=== PATIENT | male | born 1990 | race Caucasian/White ===

== ENCOUNTER 2022-02-01 00:18 | Day surgery (SDC) | payer OTHER, SELFPAY ==
[2022-01-23 14:29] VITALS: BMI 26.4
[2022-02-01 12:12] VITALS: BP 107/77; PULSE 68; RESP 18; TEMP 36.5; O2SAT 100
--- NOTE | 2022-02-01 12:24 | PM.HPGS ---
History of Present Illness History of Present Illness Consent: Risks, benefits, and alternatives have been discussed and questions answered. Patient agrees to proceed with procedure. Chief complaint: occult GI bleed Narrative: Oliver Duron is a 31 year old male Who has been having blood in his stools for over a year. Denies constipation or straining. He states that it can be painful when the stool passes but usually his stools soft he will have 2 or 3 bowel movements a day on average. He denies abdominal pain or weight loss. Review of Systems Review of Systems: All systems reviewed & are unremarkable except as noted in HPI and below PMFSH Family History Family History Father Family history of lymphoma Other Depression Social History Social History Smoking status: Former smoker Tobacco type: cigarettes Alcohol intake: current Substance use type: marijuana Living arrangements: with family Meds Home Medications and Allergies Allergies Allergy/AdvReac Type Severity Reaction Status Date / Time No Known Allergies Allergy Verified 02/01/22 12:11 Vital Signs Vital Signs - 24 hr 02/01/22 12:12 Temperature 36.5 C Pulse Rate 68 Respiratory Rate 18 Blood Pressure 107/77 Pulse Oximetry 100 Oxygen Delivery Room Air Exam Const: General: alert Orientation/consciousness: patient oriented x3 Resp: Auscultation: clear to auscultation bilaterally Cardio: Rhythm: regular rhythm GI: GI Palp: Yes Soft to palpation and No Tenderness to palpation present (GI) Neuro: General: patient oriented x3 Assessment and Plan Assessment and plan (1) Blood in stool: Code(s): K92.1 - Melena Status: Acute Assessment and Plan: Colonoscopy with possible biopsy or polypectomy or cautery or injection of substances.
[2022-02-01] MEDS: LACTATED RINGERS 1,000 ML 150 ML IV CONT (12:25)
--- NOTE | 2022-02-01 12:28 | P.PNAN_ITS ---
Anes - Initial Pre Proc Eval Procedure: Operation Date: 02/01/22 13:30 Proposed Procedures p Colonoscopy - Mahin Kyle MD Date/Time: 02/01/22 12:28 Surgeon: Mahin Kyle MD Pre Op Diagnosis: occult GI bleed Patient Data Age: 31 Gender: M Height: 1.83 m Weight: 87.2 kg Last Vital Signs Temp 97.7 F 02/01/22 12:12 Pulse 68 02/01/22 12:12 Resp 18 02/01/22 12:12 BP 107/77 02/01/22 12:12 Pulse Ox 100 02/01/22 12:12 O2 Del Method Room Air 02/01/22 12:12 Allergies Allergy/AdvReac Type Severity Reaction Status Date / Time No Known Allergies Allergy Verified 02/01/22 12:11 Patient hx anesthesia problems: none Family hx anesthesia problems: none Results Review: All pre-operative results and documents have been reviewed as part of the pre- operative evaluation. [facility] Family History Family History (Updated 11/26/13 @ 07:13 by DOCTOR UNKNOWN) Father Family history of lymphoma Other Depression Social History Social History Smoking status: Former smoker Tobacco type: cigarettes Alcohol intake: current Substance use type: marijuana Living arrangements: with family Anes - Eval Final PreProcedure Day of Procedure 02/01/22 12:28 Patient weight: normal Heart: regular rate and rhythm Lungs: clear to auscultation Airway: Mallampati scale class II Neurological: alert and oriented Last oral intake: >/= 8 hours ASA classification: II Emergent: no Anesthetic plan: proceed Anesthesia type and monitoring: general GIVS and standard monitoring Results Review: All pre-operative results and documents have been reviewed as part of the pre- operative evaluation. Informed Consent: The patient's anesthetic plan and its attendant risks and benefits were discussed with the patient/family/POA. Questions were solicited and answers provided to the satisfaction of the patient/family/POA.
[2022-02-01 13:09] VITALS: BP 104/72; PULSE 74; RESP 18; O2SAT 98
[2022-02-01 13:19] VITALS: BP 102/64; PULSE 74; RESP 17; O2SAT 98
[2022-02-01 13:29] VITALS: BP 123/81; PULSE 65; RESP 16; O2SAT 100
== END 2022-02-01 13:45 | disposition home or self-care (01) ==
PROVIDERS: PCP Physician Assistant; Visit Provider Internal Medicine Gastroenterology
PROC: 0DJD8ZZ Inspection of Lower Intestinal Tract, Via Natural or Artificial Opening Endoscopic (ICD-10-PCS; CPT 45378; principal; 2022-02-01 13:30)
DX: K92.1 Melena (principal); K64.8 Other hemorrhoids; Z87.891 Personal history of nicotine dependence
CPT/HCPCS: 45378; J2704; J7120